=== PATIENT | female | born 1970 | race African-American/Black ===

== ENCOUNTER 2020-10-21 13:31 | Emergency (ER) | payer MEDICAID ==
[~2020-10-21] VITALS: Ht 177.8 cm; Wt 73.0 kg
[2020-10-21 13:38] VITALS: BP 128/85
[2020-10-21] MEDS ORDERED: KETOROLAC 60MG/2ML VIAL IM ONE (14:00)
[2020-10-21] MEDS ORDERED: IBUP-2029 MT (15:13)
== END 2020-10-21 15:42 | disposition home or self-care (01) ==
LOC: ER 13:31
DX: S40.011A Contusion of right shoulder, initial encounter (principal); Z88.5 Allergy status to narcotic agent; W01.0XXA Fall on same level from slipping, tripping and stumbling without subsequent striking against object, initial encounter; Y93.89 Activity, other specified; Y92.89 Other specified places as the place of occurrence of the external cause; Y99.8 Other external cause status
CPT/HCPCS: 29105; 73030; 73070; 81025; 99284; J1885; A4565